=== PATIENT | female | born 1990 | race African-American/Black ===

== ENCOUNTER 2018-08-22 13:18 | Emergency (ER) | payer SELFPAY ==
[~2018-08-22] VITALS: Ht 154.9 cm; Wt 92.5 kg
[~2018-08-22 13:18] MED LIST: NKM; ZOFRAN ODT4 MG ORAL
[2018-08-22 13:27] VITALS: BP 119/85
[2018-08-22] MEDS ORDERED: VIMPAT200 MG PO (13:32)
[2018-08-22] MEDS ORDERED: CORTISPORIN EAR10 ML LEFT EAR (13:58)
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
== END 2018-08-22 14:10 | disposition home or self-care (01) ==
LOC: EMR 13:49
DX: H72.92 Unspecified perforation of tympanic membrane, left ear (principal); G40.909 Epilepsy, unspecified, not intractable, without status epilepticus
CPT/HCPCS: 99282